=== PATIENT | female | born 1955 | race Caucasian/White ===

== ENCOUNTER 2018-08-21 13:36 | Inpatient (IN) ==
--- NOTE | 2018-08-21 10:39 | Anesthesia Evaluation PreOp ---
Date of Encounter: 08/21/18 Time of Encounter: 14:34 - Past History Planned Operation: Left Total Knee Arthroplasty Cardiac History: Hyperlipidemia Pulmonary History: Denies Any Significant HX SUPERVISOR ENGINE REPAIR History: Denies Any Significant HX Other Medical History: Other (obesity BMI=50.3, anxiety/depression) Anesthesia History: Past Anesthesia, Problems (PONV) Alcohol Use: none Drug use: none Medications and Allergies Aripiprazole [Abilify] 15 mg PO DAILY 08/21/18 [History] Cholecalciferol (D-3) [Vitamin D] 5,000 unit PO DAILY 08/21/18 [History] Diclofenac Sodium [Voltaren] 100 gm TP DAILY PRN 08/21/18 [History] Duloxetine HCl [Cymbalta] 60 mg PO DAILY 08/21/18 [History] GuaiFENesin Liq [Robitussin Liq] 400 mg PO Q4H PRN 08/21/18 [History] Meloxicam [Mobic] 15 mg PO DAILY 08/21/18 [History] hydroCHLOROthiazide [Hydrochlorothiazide] 25 mg PO DAILY 08/21/18 [History] Allergy/AdvReac Type Severity Reaction Status Date / Time No Known Allergies Allergy Verified 08/21/18 14:13 - Meds/Allergy Pre-op Review Medications Reviewed: Yes Allergies Reviewed: Yes Beta Blockers on Current Med List: No Anesthesia Results - Labs Laboratory Tests 08/07/18 08/10/18 08/10/18 11:23 16:20 16:20 WBC 6.6 Hgb 13.9 Hct 42.9 Plt Count 241 PT 11.5 INR 1.0 APTT 31.5 Sodium 137 Potassium 4.0 BUN 20 Creatinine 0.64 Anesthesia Exam O2 Sat Height 1.55 m Height 1.55 m Height 1.55 m Weight 120.656 kg Weight 120.656 kg Weight 120.656 kg O2 Sat by Pulse Oximetry 97 O2 Sat by Pulse Oximetry 97 Vital Signs Temp Pulse Resp BP Pulse Ox 98.6 F 95 18 132/94 97 08/21/18 13:46 08/21/18 13:46 08/21/18 13:46 08/21/18 13:46 08/21/18 13:46 Height: 5'1'' Weight: 266 lbs NPO (# of Hours): 8 Pain Scale: 0 Pain Scale Used: Numeric (1 - 10) - HEENT Pupil (Motor): EOMI Mallampati: II Teeth: Normal Oral Opening: Greater than 3 - SUPERVISOR ENGINE REPAIR LOC: Oriented SUPERVISOR ENGINE REPAIR Motor: Normal RUE, Normal LUE, Normal RLE, Normal LLE, Normal Face SUPERVISOR ENGINE REPAIR Sensory: Normal: RUE, LUE, RLE, LLE, Face - Cardiac Rhythm: Regular Murmur: None - Pulmonary Breath Sounds: bilateral Clear Respiratory Effort: Symmetrical Anesthesia Assess/Plan ASA Score: 3 Level of consciousness: Cooperative, Oriented, Tranquil Anesthetic Plan: Regional Nerve Block, Spinal Regional Nerve Block Plan: Adductor canal, IPACK Monitoring Plan: Standard Monitors Recovery Plan: PACU
[2018-08-21] MEDS ORDERED: CeFAZolin Syr 3,000MG/30 ML 3,000 MG/30 ML SYRINGE IVPB ONE (13:51)
[2018-08-21] MEDS ORDERED: Ringers Solution, Lactated 1,000 ML IVC SCH (14:00)
--- NOTE | 2018-08-21 14:36 | History & Physical Report ---
Date of Encounter: 08/21/18 Time of Encounter: 14:35 24 Hour HP Update - Instructions Instructions: If the History and Physical is less than 30 days old and was completed prior to A.M. admission and or procedure and has NOT been updated on calendar day of procedure please complete this update prior to performing procedure. - Update Patient reports changes in Medical Condition: No Changes in examination, assessment, or condition: No Changes in Medication: No Preop tests/diagnostics Reviewed: Yes Surgery Remains Indicated: Yes Consent for Planned Operative Procedure(s) Verified: Yes - Pre-Operative Checklist Preoperative Checklist Indicated: No Prophylactic Antibiotic Ordered: Yes Is VTE Prophylaxis Indicated?: Yes
[2018-08-21] MEDS ORDERED: Propofol 500 MG/50 ML INFUS..BTL ONE (14:37)
[2018-08-21] MEDS ORDERED: *HR* FentaNYL (PF) 100 MCG/2 ML VIAL ONE (14:38)
[2018-08-21] MEDS ORDERED: ROPIVACAINE HCL/PF 0.5% 30 ML VIAL ONE (14:57)
[2018-08-21] MEDS ORDERED: Bupivacaine/Clonidine Syringe 1 EACH SYRINGE ONE (14:57)
[2018-08-21] MEDS ORDERED: Ethanol\\Acetic Acid\\Na Ace\\Ben 1,000 ML IRRIG.SOLN IR ONE (15:32)
--- NOTE | 2018-08-21 15:46 | Anesthesia Procedures ---
Date of Encounter: 08/21/18 Time of Encounter: 15:44 Procedures: Anesthesia - Epidural/Spinal Patient ID/Chart reviewed: Yes Patient examined: Yes Consent Obtained: Yes Supplemental Oxygen: Nasal Cannula Supplemental Oxygen Rate (L/min): 3 Sedation: Fentanyl (mcg): 100 Site Prep: Aseptic Technique, Sterile prep and drape, 0.5% Chlorhexidine/Alcohol Patient position: upright Local Anesthetic: Lidocaine 1% Amount of Local Anesthetic used: 3 Interspace Used: L4-L5 Loss of Resistance (ALEXANDRU): No Blood: No CSF: Yes Paresthesia: No Spinal Needle Gauge: 25 (3.5" pencan needle) Spinal Dose: 250mcg PF morphine + 3mL of 0.5% isobaric bupi Procedure: successful on 1st attempt; patient tolerated procedure well, VSS, procedure performed by JESUS Alejnadre under direct supervision Vitals + FHT's: please see holding vital signs note
[2018-08-21] MEDS ORDERED: Ondansetron 4 MG/2 ML VIAL ONE (15:48)
--- NOTE | 2018-08-21 15:48 | Anesthesia Procedures ---
Date of Encounter: 08/21/18 Time of Encounter: 15:46 Procedures: Anesthesia - Nerve Block Procedure Date: 08/21/18 Time: 15:46 Allergies/Adv Reactions: NKDA Pre-op Diagnosis: L knee arthritis Surgical Procedure: robotic assisted L TKA Checklist: Correct Patient Identifier, Correct procedure, History checked Correct side: Left Blood Thinner: No Monitor Applied: EKG, BP, Pulse Oximetry Supplemental Oxygen via Nasal Cannula (L/min): 3 Sedation: Fentanyl (mcg): 100 Indication: Post Op Analgesia (requested by Dr. Heck) Pre-op Neuro Deficits: No Block Type: Femoral, Other (iPAC) Catheter placed: No Sterile Technique: Yes Ultrasound used: Yes Anatomy identified: Yes Visual spread of Local: Yes Neuro Stimulation: Yes Nerve Stimulator Range: 0.2 - 0.4 mA Blood on Needle Aspiration: No Smooth Injection of Local: Yes Pain with Injection of Local: No Prep: Chlorhexadine Needle: 22 x 50 mm Stimuplex (femoral n. block), 21 x 100 mm Stimuplex (iPAC) Local: 0.25% Bupivicaine w/Clonidine 20 mcg/cc (20mL for iPAC), Ropivacaine (30mL of 0.5% + 8mg dexamethasone + 5mcg/mL of epi) Number of Attempts: 1 (performed by JESUS Alejandre under direct supervision) Complications: None/effective block Vitals: please see holding vital signs note
[2018-08-21] MEDS ORDERED: *HR* OxyCODONE Immed Rel 5 MG TABLET PO PRN (16:07)
[2018-08-21] MEDS ORDERED: Ondansetron 4 MG/2 ML VIAL IVP ONE (16:07)
[2018-08-21] MEDS ORDERED: *HR* HYDROmorphone (PF) 1 MG/ML SYRINGE IVP PRN (16:07)
[2018-08-21] MEDS ORDERED: *HR* Promethazine 25 MG/ML VIAL IVP PRN (16:07)
[2018-08-21] MEDS ORDERED: *HR* Labetalol 20 MG/4 ML SYRINGE IVP PRN (16:07)
[2018-08-21] MEDS ORDERED: *HR* Meperidine 25 MG/ML SYRINGE IVP PRN (16:07)
--- NOTE | 2018-08-21 16:38 | Orthopedic Operative Note ---
Date of procedure: 08/21/18 Pre-op diagnosis: Left knee arthritis Post-op diagnosis: same Procedure: Procedure: Left robotic-assisted Total knee replacement Estimated blood loss: 200 cc Hardware: Metal and polyethylene replacement. Amol Femur: 3 Tibia: 3 TS insert: 11 Patella: 36 Exam Under anesthesia: 13 degree flexion contracture 8 degree varus as calculated by the robot full flexion and no instability Procedural Notes: Grade 4 arthritic changes all 3 compartments. Operative procedure: The patient was brought to the operating room and placed on the operating room table. After general anesthesia was administered the operative knee was examined. Findings were noted in the exam under anesthesia. The operative extremity was prepped and draped in sterile surgical fashion. The patient received IV antibiotics prior to skin incision. A standard midline incision was made centered over the patella. The incision was made through the skin and subcutaneous tissue. A medial parapatellar tendon approach was performed. Care was taken to preserve tissue along the medial aspect of the patella. And to protect the patella tendon. The deep MCL was released off the medial tibia. The infra patella fat pad was excised. The patella was everted and cut was made at the level of the insertion of the quadriceps and patella tendon. The patella was sized the guide was seated and the lug holes are drilled. Knee was brought into flexion. Patient noted to have grade 4 arthritic changes all 3 compartments. Steinmann pins were placed in the tibia and the femur for the tibial and femoral arrays respectively. Checkpoints were also placed in the tibia and the femur for calculation purposes. The knee including the femur and the tibial registered. Osteophytes, ACL and PCL were excised at this point. Extension and flexion were assessed with a valgus stress components were adjusted on the computer to balance the knee. Femoral cuts were made first with robotic assistance, these included the anterior cut posterior cuts chamfer cuts. Tibial cut was then performed with robotic assistance as well. Bone fragments were removed, as well as the medial and lateral meniscus. The size 3 femoral guide was seated box cut was made lug holes are drilled. The size 3 tibial tray was seated and prepared with the fin cutter. Trial reduction with the 11 TS Jessica revealed extension of 0 degree and 5 degree varus full flexion. No varus valgus instability. Trial reduction revealed excellent patella tracking. All trial components were removed all bony surfaces were irrigated. The Tibia was seated followed by the femur, The selected Jessica size was seated and secured patella. Patient had similar findings for motion and stability. The knee was closed by the PA. The knee was then irrigated out with 2 L of pulse irrigation. The extensor mechanism was closed with #2 FiberWire suture and #2 PDS suture. The subcutaneous tissue was then irrigated and closed deep with #1 PDS suture superficially with 0 PDS suture and skin was closed with zip tie The patient was then placed in a sterile dressing and a postoperative brace extubated and transferred to recovery room in stable condition. Anesthesia: spinal Surgeon: Antonio Heck Was there an assistant director of admissions present: No Estimated blood loss (cc): 200 Condition: stable Disposition: PACU
[2018-08-21] MEDS ORDERED: *HR* Propofol 200 MG/20 ML VIAL IVP ONE (16:49)
[2018-08-21] MEDS ORDERED: *HR* PHENYLEPHRINE 1,000 MCG/10 ML SYRINGE IVP ONE (16:49)
[2018-08-21] MEDS ORDERED: EPHEDrine 50 MG/ML VIAL ONE (16:49)
--- NOTE | 2018-08-21 17:48 | Anesthesia Evaluation Post Op ---
Date of Encounter: 08/21/18 Time of Encounter: 17:48 - Vital Signs Vital Signs: Vital Signs/O2 Sat, Most Current Temp Pulse Resp BP Pulse Ox 97.5 F L 81 18 117/71 93 08/21/18 17:39 08/21/18 17:39 08/21/18 17:39 08/21/18 17:39 08/21/18 17:39 - Lungs Lungs: Clear Ascult./Percussion - Airway Airway: Non-obstructed - Cardiovascular Regular Rate - Mental Status Mental Status: Alert & Oriented, Answers Appropriately - Pain Pain Scale: 0 Pain Scale used: Numeric (1 - 10) - Nausea Vomiting Nausea Vomiting: Not Present - Hydration Hydration: Ice chips, Has not voided - Discharge PostOp Status: Transfer Patient to floor
[2018-08-21 17:50] LABS: Hematocrit 37.1 % (35.3-44.9); Hemoglobin 12.3 g/dL (11.5-15.4)
[2018-08-21] MEDS ORDERED: *HR* OxyCODONE/APAP 5/325 TABLET PO PRN (18:10)
[2018-08-21] MEDS ORDERED: Naloxone 0.4 MG/ML INJ IVP PRN (18:10)
[2018-08-21] MEDS ORDERED: Temazepam 15 MG CAPSULE PO PRN (18:10)
[2018-08-21] MEDS ORDERED: MOM Conc 10 ML UD.LIQ PO PRN (18:10)
[2018-08-21] MEDS ORDERED: Sennosides 8.6 MG TABLET PO PRN (18:10)
[2018-08-21] MEDS ORDERED: GuaiFENesin Liq 200 MG/10 ML UDC PO PRN (18:10)
[2018-08-22] MEDS: ceFAZolin sodium 3,000 MG in 0.9 % Sodium Chloride 100 ML IVPB SCH ×2 (00:19→09:08)
[2018-08-22] MEDS: Ondansetron 4 MG/2 ML VIAL IVP PRN ×2 (00:20→10:12)
[2018-08-22] MEDS: Ringers Solution, Lactated 1,000 ML IVC SCH ×2 (04:27→19:38)
[2018-08-22 05:28] LABS: Hematocrit 37.1 % (35.3-44.9); Hemoglobin 12.1 g/dL (11.5-15.4)
[2018-08-22] MEDS: *HR* Enoxaparin 30 MG/0.3 ML SYRINGE SQ SCH ×3 (05:28→17:05)
[2018-08-22 05:46] LABS: BUN/Creatinine Ratio 39 (6-26); Blood Urea Nitrogen 19 mg/dL (8-23); Calcium 9.1 mg/dL (8.6-10.3); Carbon Dioxide 24 mEq/L (23-29); Chloride 104 mEq/L (98-107); Glucose 151 mg/dL (70-105); Osmolality,Calculated 287 (280-300); Potassium 4.4 mEq/L (3.5-5.1); Sodium 136 mEq/L (136-145); eGFR For Non-African Americans > 60 (> 60)
--- NOTE | 2018-08-22 06:34 | Orthopedics Progress Note ---
Date of Encounter: 08/22/18 Time of Encounter: 06:34 Subjective Interval history: Patient was seen this morning doing well without complaints. Afebrile vital signs stable. Operative extremity: Neurovascularly intact Dressing clean dry and intact Calves nontender Assessment and plan: Continue with postoperative care Patient is unsafe to go home will require ECF converted to inpatient status Objective Vital signs: Vital Signs Temp Pulse Resp BP Pulse Ox 08/22/18 04:03 97.6 F 69 17 94/68 93 08/21/18 23:26 98.1 F 71 17 93/66 94 08/21/18 21:48 68 14 102/70 97 08/21/18 18:47 97.3 F L 73 12 102/69 92 08/21/18 18:18 97.6 F 77 12 90/65 94 08/21/18 17:54 97.5 F L 76 16 110/63 94 08/21/18 17:39 97.5 F L 81 18 117/71 93 08/21/18 17:29 82 18 111/77 93 08/21/18 17:19 83 18 103/59 93 08/21/18 17:09 98.3 F 87 20 93/49 93 08/21/18 15:23 86 16 117/73 97 08/21/18 15:08 91 18 128/76 100 08/21/18 13:58 98.6 F 95 18 132/94 97 08/21/18 13:46 98.6 F 95 18 132/94 97 Intake and Output 08/21/18 08/21/18 08/22/18 15:59 23:59 07:59 Intake Total 100 / 100 Output Total 350 / 350 210 / 210 Balance -350 / -350 -110 / -110 Intake: Oral 100 / 100 Output: Urine 200 / 200 Emesis 150 / 150 10 / 10 Estimated Blood Loss 200 / 200 Other: Weight 120.656 kg 120.658 kg Patient Weight 08/22/18 23:59 Weight 120.658 kg - Labs CBC & BMP: 08/22/18 04:57 08/22/18 04:57 Labs: Abnormal lab results Creatinine 0.49 mg/dL (0.60-1.20) L 08/22/18 04:57 BUN/Creatinine Ratio 39 (6-26) H 08/22/18 04:57 Glucose 151 mg/dL (70-105) H 08/22/18 04:57 Consult Discharge Plan - Plan Referrals: Beatrice Solis MD [Primary Care Provider] -
[2018-08-22] MEDS: ARIPiprazole 10 MG TABLET PO SCH (09:07)
[2018-08-22] MEDS: Cholecalciferol (D-3) 1,000 UNIT TABLET PO SCH (09:07)
[2018-08-22] MEDS: hydroCHLOROthiazide 25 MG TABLET PO SCH (09:07)
--- NOTE | 2018-08-22 12:20 | Event Note ---
Date of Encounter: 08/22/18 Time of Encounter: 12:19 PCR - POD#1 - Left TKR Patient seen at bedside, without complaints. A&O x 3 Afebrile, vital signs stable. Labs reviewed. H/H - stable, asymptomatic Pain control: adequate Participating in PT. All questions and concerns addressed. Educated on use of incentive spirometer. Encouraged ambulation and proper hydration. Patient educated on post-operative restrictions and post-operative care. Assessment and plan: Continue with postoperative care Discharge plan: ECF, discharge Tuesday. Vital Signs Temp Pulse Resp BP Pulse Ox 08/22/18 12:14 97.5 F L 71 15 99/68 98 08/22/18 09:10 97 08/22/18 07:23 98.3 F 65 15 100/70 97 08/22/18 04:03 97.6 F 69 17 94/68 93 08/21/18 23:26 98.1 F 71 17 93/66 94 08/21/18 21:48 68 14 102/70 97 08/21/18 18:47 97.3 F L 73 12 102/69 92 08/21/18 18:18 97.6 F 77 12 90/65 94 08/21/18 17:54 97.5 F L 76 16 110/63 94 08/21/18 17:39 97.5 F L 81 18 117/71 93 08/21/18 17:29 82 18 111/77 93 08/21/18 17:19 83 18 103/59 93 08/21/18 17:09 98.3 F 87 20 93/49 93 08/21/18 15:23 86 16 117/73 97 08/21/18 15:08 91 18 128/76 100 08/21/18 13:58 98.6 F 95 18 132/94 97 08/21/18 13:46 98.6 F 95 18 132/94 97 Intake and Output 08/21/18 08/22/18 08/22/18 23:59 07:59 15:59 Intake Total 200 / 200 100 / 100 Output Total 350 / 350 210 / 210 700 / 700 Balance -350 / -350 -10 / -10 -600 / -600 Intake: IV Fluids 100 / 100 Ancef 3,000 MG In 0.9 % Sodium 100 / 100 Chloride 100 ML @ 200 mls/hr IVPB Q8HR JOSE ANTONIO Rx#:[id number] Oral 100 / 100 100 / 100 Output: Urine 200 / 200 700 / 700 Emesis 150 / 150 10 / 10 Estimated Blood Loss 200 / 200 Other: Weight 120.658 kg Patient Weight 08/22/18 23:59 Weight 120.658 kg Short CBC 08/22/18 08/21/18 Range/Units 04:57 17:30 Hgb 12.1 12.3 (11.5-15.4) g/dL Hct 37.1 37.1 (35.3-44.9) % BMP 08/22/18 Range/Units 04:57 Sodium 136 (136-145) mEq/L Potassium 4.4 (3.5-5.1) mEq/L Chloride 104 (98-107) mEq/L Carbon Dioxide 24 (23-29) mEq/L BUN 19 (8-23) mg/dL Creatinine 0.49 L (0.60-1.20) mg/dL Glucose 151 H (70-105) mg/dL Calcium 9.1 (8.6-10.3) mg/dL
--- NOTE | 2018-08-22 17:14 | Discharge Summary ---
Orders not resulted at time of discharge: Pending orders 08/21/18 14:49 US anesthesia pain block [US] Routine 08/21/18 16:43 Surgical Pathology [PTH] Routine 08/23/18 04:00 Basic Metabolic Panel AM 0400 Hemoglobin and Hematocrit [HEME] AM 0400 Date of Encounter: 08/25/18 Time of Encounter: 13:30 - Discharge Diagnosis (1) Status post total left knee replacement Priority: Primary Status: Acute Comments: .Opsite dressing, leave intact until first post-operative visit. If dressing becomes >50% saturated, contact office, remove dressing and place appropriate dressing in its place. Do not allow for dressing to get wet. Zipline in place, plan to remove at post-operative day #14-16. Total Joint Precautions x 6 weeks Apply cold therapy wrap 3-6x/day for 20 minutes at a time. Encourage ambulation throughout the day Use Incentive spirometer 10x/hour. Elevate affected extremity above heart as tolerated. Brace: Wear knee immobilizer at night until first post-operative appt. (2) Arthritis of left knee Priority: Primary Status: Acute (3) CAD (coronary artery disease) Priority: Secondary Status: Acute Qualifiers: Coronary Disease-Associated Artery/Lesion type: [place] artery [place] vs. transplanted heart: [place] heart Associated angina: without angina Qualified Code(s): I25.10 - Atherosclerotic heart disease of [place] coronary artery without angina pectoris (4) History of anemia Priority: Secondary Status: Chronic - Hospital Course Hospital course: Ms. Styles is a 62 year old female POD#4 - Left TKR Patient seen at bedside, without complaints. A&O x 3 Afebrile, vital signs stable. Vital Signs Temp Pulse Resp BP Pulse Ox 08/25/18 11:34 98.8 F 87 16 109/67 98 08/25/18 06:41 97.6 F 93 16 118/76 95 08/24/18 22:51 97.9 F 89 16 116/80 94 08/24/18 19:34 99.1 F 84 15 115/75 90 08/24/18 17:31 98.5 F 87 17 143/88 94 Intake and Output 08/24/18 08/25/18 08/25/18 23:59 07:59 15:59 Intake Total 300 / 300 Balance 300 / 300 Intake: Oral 300 / 300 Other: Meal Dinner Percent of Meal Consumed 75% # Voids 1 1 Weight 122.6 kg Patient Weight 08/25/18 23:59 Weight 122.6 kg Labs reviewed. H/H - stable, asymptomatic Short CBC 08/25/18 Range/Units 08:21 Hgb 10.2 L (11.5-15.4) g/dL Hct 30.6 L (35.3-44.9) % Pain control: adequate Participating in PT. All questions and concerns addressed. Educated on use of incentive spirometer. Encouraged ambulation and proper hydration. Patient educated on post-operative restrictions and post-operative care. Assessment and plan: Continue with postoperative care Discharge plan: ECF, discharge Tuesday. - Time Spent with Patient Total time spent providing and/or coordinating discharge services: - Discharge Medications Prescriptions: OxyCODONE Immed Rel [Roxicodone 5 MG] 5 mg PO Q6HR PRN 7 Days #28 tablet PRN Reason: Severe pain 7-10 Aspirin Enteric Coated [Aspirin EC] 325 mg PO BID #20 tablet. Docleahte [Colace] 100 mg PO BID #14 tab Home Medications: Aripiprazole [Abilify] 15 mg PO DAILY 08/21/18 [History] Cholecalciferol (D-3) [Vitamin D] 5,000 unit PO DAILY 08/21/18 [History] Diclofenac Sodium [Voltaren] 100 gm TP DAILY PRN 08/21/18 [History] Duloxetine HCl [Cymbalta] 60 mg PO DAILY 08/21/18 [History] GuaiFENesin Liq [Robitussin Liq] 400 mg PO Q4H PRN 08/21/18 [History] hydroCHLOROthiazide [Hydrochlorothiazide] 25 mg PO DAILY 08/21/18 [History] Aspirin Enteric Coated [Aspirin EC] 325 mg PO BID #20 tablet. 08/22/18 [Rx] Docusate [Colace] 100 mg PO BID #14 tab 08/22/18 [Rx] OxyCODONE Immed Rel [Roxicodone 5 MG] 5 mg PO Q6HR PRN 7 Days #28 tablet 08/22/18 [Rx] Allergies/Adverse Reactions: Allergy/AdvReac Type Severity Reaction Status Date / Time No Known Allergies Allergy Verified 08/21/18 14:13 Date of admission: 08/22/18 06:33 Primary care physician: Beatrice Solis Consults: 08/21/18 18:10 Consult to Occupational Therapy [CONS] Routine Comment: Evaluate, develop and implement POC Reason for Consult: post knee surgery Does patient have active BEDREST order?: No Is patient medically & hemodynamically stable?: Yes Consult to Orthopedic Navigator [CONS] [CONS] Routine Consult to Physical Therapy [CONS] Routine Comment: Evaluate, develop and impliment POC Reason for Consult: post knee surgery Does patient have active BEDREST order?: No Is patient medically & hemodynamically stable?: Yes Consult to Family Law Attorney [CONS] Routine Reason for SW Consult: post op joint replacement RT Post Op Consult [CONS] Routine 08/21/18 18:16 Consult to Pastoral Services [CONS] Routine Comment: pt request Anticipated date of discharge: 08/25/18 Labs on day of discharge: Labs from last 24 hours 08/22/18 08/22/18 08/21/18 04:57 04:57 17:30 Hgb 12.1 12.3 Hct 37.1 37.1 Sodium 136 Potassium 4.4 Chloride 104 Carbon Dioxide 24 BUN 19 Creatinine 0.49 L Est GFR ( Amer) > 60 Est GFR (Non-Af Amer) > 60 BUN/Creatinine Ratio 39 H Glucose 151 H Calculated Osmolality 287 Calcium 9.1 - Impressions ITS Impressions Knee X-Ray 08/21/18 00:01 IMPRESSION: Status post left knee arthroplasty without evidence of acute postoperative complication. D/ / 08/22/2018 08:10:15 Jack Ortega MD / Lupe Shay Interpreting Provider: Jack Ortega MD - Patient Status Disposition: Transfer SNF Functional capacity at discharge: uses cane/walker Overall status at discharge: patient is progressing back to baseline - Discharge Instructions Follow Up With: Beatrice Solis MD [Primary Care Provider] - Additional Instructions: Discharge Instructions: Total Knee Replacement Please call [facility] ([phone]), your Primary Care Physician, or report to the Emergency Room if you have any of the following symptoms: Nausea, vomiting, fever greater that 101.5, swelling, chest pain, shortness of breath, increased pain/redness/drainage/odor for your incision site, numbness/tingling, or any other concerning symptoms. ACTIVITY:Weight-bearing as tolerated. You may progress off support (crutches or walker) as tolerated. Incentive Spirometer 10 times an hour. MEDICATIONS: Upon discharge resume your home medications. Take all the medications as prescribed. Take a stool softener if taking narcotic pain medications. Stool softeners are only effective if you drink enough fluids. Drink 6-8 glass of water or fluids a day, unless this is not allowed for another health problem. Despite using stool softeners, if you haven't had a bowel movement in 3 days, please switch to a gentle laxative. Gentle laxatives are sold over the counter. You should have a bowel movement within 24 hours, if not call the office. You will be discharged from the hospital with a prescription for pain medication. You are encouraged to decrease the use of narcotic pain medication as tolerated. Should you require a refill, please call the office. [facility] prescribes narcotic pain medication for only 4-6 weeks after surgery. If you require pain medication beyond this time period, you may be referred to your Primary Care Physician or to the Pain Clinic for further evaluation. Plan ahead for refills on pain medication as many narcotics either need to be picked up at the office or mailed. It is best to call 48-72 hours in advance of needing a prescription refill so you don't run out of medication. To help control the post-operative pain, you may take NSAIDs (Aleve,Advil, Motrin, Ibuprofen, Naprosyn) or Tylenol as prescribed on the bottle in addition to the pain medication. ANTICOAGULATION (blood thinners): Continue your Aspirin, Lovenox or Coumadin as prescribed to help prevent a blood clot in the leg or in the lungs. As long as your incision remains dry and you tolerate the NSAIDs (Aleve, Advil, Motrin, ibuprofen, naprosyn), it is OK to use the NSAIDS while you are taking your anticoagulation medication. Should your incision start to drain, stop the NSAID and contact our office. Common symptoms of blood clot in the legs include: localized pain, swelling, calf tenderness, redness or discoloration of the skin. Blood clot in the lung symptoms include: shortness of breath, rapid pulse, sweating, and chest pain that worsens with deep breathing, coughing up blood, lightheadedness, feelings of anxiety. If you experience any of these symptoms notify your physician immediately, go to the emergency room, or if having trouble breathing, call 911. WOUND CARE: Leave the dressing on for 7 to 10days. You may change the dressing if it becomes saturated greater than 50%. Do not get the dressing wet at anytime. Wash your hands with antibacterial soap, rinse and dry prior to any wound care. If you have erin the visiting nurse or rehab facility can remove the stapes 10-14 days after surgery and place steri-strips across the wound. Leave the steri-strips in place until they fall off on their won. You may let water from the shower run on top of the steri-strips. If you do not have a visiting nurse or rehab facility, you will need to return to the office at 10-14 days for the erin to be removed. If you have itching or redness around the dressing call the office. FOLLOW-UP: Please follow up with your surgeon in the orthopedic clinic in 4 weeks from the day of surgery. If you have erin that need to be removed, you will need to come back to the office in 10-14 days from the day of surgery.
--- NOTE | 2018-08-22 17:16 | Physician Discharge Referral ---
ExtendedCare Referral Info Transfer To: F Provider in Charge after Transfer: PCP Institutional Level of Care: Skilled - Diagnosis (1) Status post total left knee replacement Priority: Primary Status: Acute (2) Arthritis of left knee Priority: Primary Status: Acute (3) CAD (coronary artery disease) Priority: Secondary Status: Acute (4) History of anemia Priority: Secondary Status: Chronic Expected Duration of Placement: < 30 days Prognosis: Good Aware of Diagnosis: Patient Aware of Prognosis: Patient - Transfer Medications Prescriptions: OxyCODONE Immed Rel [Roxicodone 5 MG] 5 mg PO Q6HR PRN 7 Days #28 tablet PRN Reason: Severe pain 7-10 Aspirin Enteric Coated [Aspirin EC] 325 mg PO BID #20 tablet. Doccirilo [Colace] 100 mg PO BID #14 tab Home Medications: Aripiprazole [Abilify] 15 mg PO DAILY 08/21/18 [History] Cholecalciferol (D-3) [Vitamin D] 5,000 unit PO DAILY 08/21/18 [History] Diclofenac Sodium [Voltaren] 100 gm TP DAILY PRN 08/21/18 [History] Duloxetine HCl [Cymbalta] 60 mg PO DAILY 08/21/18 [History] GuaiFENesin Liq [Robitussin Liq] 400 mg PO Q4H PRN 08/21/18 [History] hydroCHLOROthiazide [Hydrochlorothiazide] 25 mg PO DAILY 08/21/18 [History] Aspirin Enteric Coated [Aspirin EC] 325 mg PO BID #20 tablet. 08/22/18 [Rx] Docusate [Colace] 100 mg PO BID #14 tab 08/22/18 [Rx] OxyCODONE Immed Rel [Roxicodone 5 MG] 5 mg PO Q6HR PRN 7 Days #28 tablet 08/22/18 [Rx] Allergies/Adverse Reactions: Allergy/AdvReac Type Severity Reaction Status Date / Time No Known Allergies Allergy Verified 08/21/18 14:13 - Respiratory Orders None Smoking Cessation: Smoking cessation has been advised. For more information, call the [place] Tobacco Quit Line at 7-771-HRCE-NOW. - Mobility Orders Ambulate - Rehabiliation Orders Rehab Potential: Good Rehab Orders: ROM Exercises, Evaluation for Physical Therapy, Evaluation for Occupational Therapy - Treatments Skin tear care topically daily PRN per policy, May check for fecal impaction rectally daily PRN, Fleet enema rectally every other day PRN cleansing purposes List/Other: Opsite dressing, leave intact until first post-operative visit. If dressing becomes >50% saturated, contact office, remove dressing and place appropriate dressing in its place. Do not allow for dressing to get wet. Zipline in place, plan to remove at post-operative day #14-16. Total Joint Precautions x 6 weeks Apply cold therapy wrap 3-6x/day for 20 minutes at a time. Encourage ambulation throughout the day Use Incentive spirometer 10x/hour. Elevate affected extremity above heart as tolerated. Brace: Wear knee immobilizer at night until first post-operative appt. - Diet Orders Regular CERTIFICATION: I certify that the transfer of the above named [facility] for the continuing treatment of the diagnosis listed. The above information is true and accurate reflection of patient's current condition. Confidential - Redisclosure prohibited without a patient's written consent.
[2018-08-22] MEDS: *HR* OxyCODONE Immed Rel 5 MG TABLET PO PRN (18:11)
[2018-08-22] MEDS: traMADol 50 MG TABLET PO PRN (20:39)
[2018-08-23] MEDS: *HR* OxyCODONE Immed Rel 5 MG TABLET PO PRN ×5 (01:01→20:33)
[2018-08-23 04:24] LABS: Hematocrit 32.5 % (35.3-44.9); Hemoglobin 10.6 g/dL (11.5-15.4)
[2018-08-23 04:43] LABS: BUN/Creatinine Ratio 53 (6-26); Blood Urea Nitrogen 20 mg/dL (8-23); Calcium 8.5 mg/dL (8.6-10.3); Carbon Dioxide 26 mEq/L (23-29); Chloride 103 mEq/L (98-107); Glucose 131 mg/dL (70-105); Osmolality,Calculated 284 (280-300); Sodium 135 mEq/L (136-145); eGFR For Non-African Americans > 60 (> 60)
[2018-08-23] MEDS: *HR* Enoxaparin 30 MG/0.3 ML SYRINGE SQ SCH ×2 (05:52→16:18)
[2018-08-23] MEDS: traMADol 50 MG TABLET PO PRN (08:32)
[2018-08-23] MEDS: ARIPiprazole 10 MG TABLET PO SCH (08:32)
[2018-08-23] MEDS: Cholecalciferol (D-3) 1,000 UNIT TABLET PO SCH (08:33)
[2018-08-23] MEDS: hydroCHLOROthiazide 25 MG TABLET PO SCH (08:33)
--- NOTE | 2018-08-23 14:35 | Orthopedics Progress Note ---
Date of Encounter: 08/23/18 Time of Encounter: 06:00 Subjective Interval history: Patient was seen this morning doing well without complaints. Afebrile vital signs stable. Operative extremity: Neurovascularly intact Dressing clean dry and intact Calves nontender Assessment and plan: Continue with postoperative care Discharge when approved Objective Vital signs: Vital Signs Temp Pulse Resp BP Pulse Ox 08/23/18 10:48 98.4 F 87 18 136/85 93 08/23/18 06:22 98.7 F 83 18 116/80 95 08/22/18 23:36 98.5 F 84 16 120/76 97 08/22/18 19:00 98.3 F 82 15 98/62 96 08/22/18 15:37 98.3 F 73 15 109/77 97 Intake and Output 08/22/18 08/23/18 08/23/18 23:59 07:59 15:59 Intake Total 1000 / 1000 270 / 270 Output Total 150 / 150 Balance 1000 / 1000 -150 / -150 270 / 270 Intake: IV Fluids 1000 / 1000 100 / 100 Lactated Ringers 1,000 ML @ 75 1000 / 1000 mls/hr IVC .[id number] JOSE ANTONIO Rx#: [id number] Oral 170 / 170 Output: Urine 150 / 150 Other: Meal Lunch Percent of Meal Consumed 30% # Voids 1 Weight 122 kg Patient Weight 08/23/18 23:59 Weight 122 kg - Labs CBC & BMP: 08/23/18 03:39 08/23/18 03:39 Labs: Abnormal lab results Hgb 10.6 g/dL (11.5-15.4) L D 08/23/18 03:39 Hct 32.5 % (35.3-44.9) L 08/23/18 03:39 Sodium 135 mEq/L (136-145) L 08/23/18 03:39 Creatinine 0.38 mg/dL (0.60-1.20) L 08/23/18 03:39 BUN/Creatinine Ratio 53 (6-26) H 08/23/18 03:39 Glucose 131 mg/dL (70-105) H 08/23/18 03:39 Calcium 8.5 mg/dL (8.6-10.3) L 08/23/18 03:39 Consult Discharge Plan - Plan Referrals: Beatrice Solis MD [Primary Care Provider] - Prescriptions: Aspirin Enteric Coated [Aspirin EC] 325 mg PO BID #20 tablet. Doccirilo [Colace] 100 mg PO BID #14 tab OxyCODONE Immed Rel [Roxicodone 5 MG] 5 mg PO Q6HR PRN 7 Days #28 tablet PRN Reason: Severe pain 7-10
--- NOTE | 2018-08-23 15:52 | Event Note ---
Date of Encounter: 08/23/18 Time of Encounter: 15:52 PCR - POD#2 - Left TKR Patient seen at bedside, without complaints. A&O x 3 Afebrile, vital signs stable. Labs reviewed. H/H - stable, asymptomatic Pain control: adequate Participating in PT. All questions and concerns addressed. Educated on use of incentive spirometer. Encouraged ambulation and proper hydration. Patient educated on post-operative restrictions and post-operative care. Assessment and plan: Continue with postoperative care Discharge plan: ECF, discharge Tuesday. Short CBC 08/23/18 Range/Units 03:39 Hgb 10.6 L D (11.5-15.4) g/dL Hct 32.5 L (35.3-44.9) % BMP 08/23/18 Range/Units 03:39 Sodium 135 L (136-145) mEq/L Potassium 4.0 (3.5-5.1) mEq/L Chloride 103 (98-107) mEq/L Carbon Dioxide 26 (23-29) mEq/L BUN 20 (8-23) mg/dL Creatinine 0.38 L (0.60-1.20) mg/dL Glucose 131 H (70-105) mg/dL Calcium 8.5 L (8.6-10.3) mg/dL Vital Signs Temp Pulse Resp BP Pulse Ox 08/23/18 15:07 98.4 F 93 18 124/82 93 08/23/18 10:48 98.4 F 87 18 136/85 93 08/23/18 06:22 98.7 F 83 18 116/80 95 08/22/18 23:36 98.5 F 84 16 120/76 97 08/22/18 19:00 98.3 F 82 15 98/62 96 Intake and Output 08/22/18 08/23/18 08/23/18 23:59 07:59 15:59 Intake Total 1000 / 1000 270 / 270 Output Total 150 / 150 Balance 1000 / 1000 -150 / -150 270 / 270 Intake: IV Fluids 1000 / 1000 100 / 100 Lactated Ringers 1,000 ML @ 75 1000 / 1000 mls/hr IVC .[id number] JOSE ANTONIO Rx#: [id number] Oral 170 / 170 Output: Urine 150 / 150 Other: Meal Lunch Percent of Meal Consumed 30% # Voids 1 1 Weight 122 kg Patient Weight 08/23/18 23:59 Weight 122 kg
[2018-08-24] MEDS: *HR* OxyCODONE Immed Rel 5 MG TABLET PO PRN ×5 (02:38→22:48)
[2018-08-24] MEDS: *HR* Enoxaparin 30 MG/0.3 ML SYRINGE SQ SCH ×2 (05:09→17:13)
[2018-08-24] MEDS: hydroCHLOROthiazide 25 MG TABLET PO SCH (08:31)
[2018-08-24] MEDS: ARIPiprazole 10 MG TABLET PO SCH (08:31)
[2018-08-24] MEDS: Cholecalciferol (D-3) 1,000 UNIT TABLET PO SCH (08:31)
[2018-08-24] MEDS: traMADol 50 MG TABLET PO PRN (08:54)
--- NOTE | 2018-08-24 10:49 | Orthopedics Progress Note ---
Date of Encounter: 08/24/18 Time of Encounter: 10:49 Subjective Interval history: Patient was seen this morning doing well without complaints. Afebrile vital signs stable. Operative extremity: Neurovascularly intact Dressing clean dry and intact Calves nontender Assessment and plan: Continue with postoperative care Discharge when approved Objective Vital signs: Vital Signs Temp Pulse Resp BP Pulse Ox 08/24/18 08:58 98.3 F 98 18 128/79 94 08/24/18 06:59 98.1 F 85 18 106/68 93 08/24/18 04:10 98.0 F 83 14 122/76 90 08/24/18 00:47 98.2 F 92 14 116/67 91 08/23/18 18:25 98.2 F 92 15 143/89 90 08/23/18 15:07 98.4 F 93 18 124/82 93 Intake and Output 08/23/18 08/24/18 08/24/18 23:59 07:59 15:59 Intake Total 150 / 150 240 / 240 Balance 150 / 150 240 / 240 Intake: Oral 150 / 150 240 / 240 Other: Meal Dinner Breakfast Percent of Meal Consumed 25% 40% # Voids 1 1 Weight 122.5 kg Patient Weight 08/24/18 23:59 Weight 122.5 kg - Labs CBC & BMP: 08/23/18 03:39 08/23/18 03:39 Labs: Abnormal lab results Hgb 10.6 g/dL (11.5-15.4) L D 08/23/18 03:39 Hct 32.5 % (35.3-44.9) L 08/23/18 03:39 Sodium 135 mEq/L (136-145) L 08/23/18 03:39 Creatinine 0.38 mg/dL (0.60-1.20) L 08/23/18 03:39 BUN/Creatinine Ratio 53 (6-26) H 08/23/18 03:39 Glucose 131 mg/dL (70-105) H 08/23/18 03:39 Calcium 8.5 mg/dL (8.6-10.3) L 08/23/18 03:39 Consult Discharge Plan - Plan Referrals: Beatrice Solis MD [Primary Care Provider] - Prescriptions: Aspirin Enteric Coated [Aspirin EC] 325 mg PO BID #20 tablet.dr Docusate [Colace] 100 mg PO BID #14 tab OxyCODONE Immed Rel [Roxicodone 5 MG] 5 mg PO Q6HR PRN 7 Days #28 tablet PRN Reason: Severe pain 7-10
[2018-08-25] MEDS: *HR* OxyCODONE Immed Rel 5 MG TABLET PO PRN ×2 (04:41→11:15)
[2018-08-25] MEDS: *HR* Enoxaparin 30 MG/0.3 ML SYRINGE SQ SCH (04:44)
[2018-08-25] MEDS: ARIPiprazole 10 MG TABLET PO SCH (07:20)
[2018-08-25] MEDS: Cholecalciferol (D-3) 1,000 UNIT TABLET PO SCH (07:21)
[2018-08-25] MEDS: hydroCHLOROthiazide 25 MG TABLET PO SCH (07:21)
--- NOTE | 2018-08-25 08:31 | Orthopedics Progress Note ---
Date of Encounter: 08/25/18 Time of Encounter: 08:30 Subjective Interval history: Patient was seen this morning doing well without complaints. Afebrile vital signs stable. Operative extremity: Neurovascularly intact Dressing clean dry and intact Calves nontender Assessment and plan: Continue with postoperative care Discharge when approved Objective Vital signs: Vital Signs Temp Pulse Resp BP Pulse Ox 08/25/18 06:41 97.6 F 93 16 118/76 95 08/24/18 22:51 97.9 F 89 16 116/80 94 08/24/18 19:34 99.1 F 84 15 115/75 90 08/24/18 17:31 98.5 F 87 17 143/88 94 08/24/18 13:26 98.1 F 68 16 98 08/24/18 13:13 95 08/24/18 11:48 98.6 F 93 18 105/72 94 08/24/18 08:58 98.3 F 98 18 128/79 94 Intake and Output 08/24/18 08/25/18 08/25/18 23:59 07:59 15:59 Intake Total 300 / 300 Balance 300 / 300 Intake: Oral 300 / 300 Other: Meal Dinner Percent of Meal Consumed 75% # Voids 1 1 Weight 122.6 kg Patient Weight 08/25/18 23:59 Weight 122.6 kg - Labs CBC & BMP: 08/23/18 03:39 08/23/18 03:39 Labs: Abnormal lab results Hgb 10.6 g/dL (11.5-15.4) L D 08/23/18 03:39 Hct 32.5 % (35.3-44.9) L 08/23/18 03:39 Sodium 135 mEq/L (136-145) L 08/23/18 03:39 Creatinine 0.38 mg/dL (0.60-1.20) L 08/23/18 03:39 BUN/Creatinine Ratio 53 (6-26) H 08/23/18 03:39 Glucose 131 mg/dL (70-105) H 08/23/18 03:39 Calcium 8.5 mg/dL (8.6-10.3) L 08/23/18 03:39 - VTE Documentation of Mechanical Device: Venous foot pump, device Consult Discharge Plan - Plan Additional Instructions: Discharge Instructions: Total Knee Replacement Please call [facility] ([phone]), your Primary Care Physician, or report to the Emergency Room if you have any of the following symptoms: Nausea, vomiting, fever greater that 101.5, swelling, chest pain, shortness of breath, increased pain/redness/drainage/odor for your incision site, numbness/tingling, or any other concerning symptoms. ACTIVITY:Weight-bearing as tolerated. You may progress off support (crutches or walker) as tolerated. Incentive Spirometer 10 times an hour. MEDICATIONS: Upon discharge resume your home medications. Take all the medications as prescribed. Take a stool softener if taking narcotic pain medications. Stool softeners are only effective if you drink enough fluids. Drink 6-8 glass of water or fluids a day, unless this is not allowed for another health problem. Despite using stool softeners, if you haven't had a bowel movement in 3 days, please switch to a gentle laxative. Gentle laxatives are sold over the counter. You should have a bowel movement within 24 hours, if not call the office. You will be discharged from the hospital with a prescription for pain medication. You are encouraged to decrease the use of narcotic pain medication as tolerated. Should you require a refill, please call the office. [facility] prescribes narcotic pain medication for only 4-6 weeks after surgery. If you require pain medication beyond this time period, you may be referred to your Primary Care Physician or to the Pain Clinic for further evaluation. Plan ahead for refills on pain medication as many narcotics either need to be picked up at the office or mailed. It is best to call 48-72 hours in advance of needing a prescription refill so you don't run out of medication. To help control the post-operative pain, you may take NSAIDs (Aleve,Advil, Motrin, Ibuprofen, Naprosyn) or Tylenol as prescribed on the bottle in addition to the pain medication. ANTICOAGULATION (blood thinners): Continue your Aspirin, Lovenox or Coumadin as prescribed to help prevent a blood clot in the leg or in the lungs. As long as your incision remains dry and you tolerate the NSAIDs (Aleve, Advil, Motrin, ibuprofen, naprosyn), it is OK to use the NSAIDS while you are taking your anticoagulation medication. Should your incision start to drain, stop the NSAID and contact our office. Common symptoms of blood clot in the legs include: localized pain, swelling, calf tenderness, redness or discoloration of the skin. Blood clot in the lung symptoms include: shortness of breath, rapid pulse, sweating, and chest pain that worsens with deep breathing, coughing up blood, lightheadedness, feelings of anxiety. If you experience any of these symptoms notify your physician immediately, go to the emergency room, or if having trouble breathing, call 911. WOUND CARE: Leave the dressing on for 7 to 10days. You may change the dressing if it becomes saturated greater than 50%. Do not get the dressing wet at anytime. Wash your hands with antibacterial soap, rinse and dry prior to any wound care. If you have erin the visiting nurse or rehab facility can remove the stapes 10-14 days after surgery and place steri-strips across the wound. Leave the steri-strips in place until they fall off on their won. You may let water from the shower run on top of the steri-strips. If you do not have a visiting nurse or rehab facility, you will need to return to the office at 10-14 days for the erin to be removed. If you have itching or redness around the dressing call the office. FOLLOW-UP: Please follow up with your surgeon in the orthopedic clinic in 4 weeks from the day of surgery. If you have erin that need to be removed, you will need to come back to the office in 10-14 days from the day of surgery. Referrals: Beatrice Solis MD [Primary Care Provider] - Prescriptions: Aspirin Enteric Coated [Aspirin EC] 325 mg PO BID #20 tablet.dr Velozte [Colace] 100 mg PO BID #14 tab OxyCODONE Immed Rel [Roxicodone 5 MG] 5 mg PO Q6HR PRN 7 Days #28 tablet PRN Reason: Severe pain 7-10
[2018-08-25 08:35] LABS: Hematocrit 30.6 % (35.3-44.9); Hemoglobin 10.2 g/dL (11.5-15.4)
[2018-08-25 11:35] VITALS: BP 109/67
== END 2018-08-25 13:00 | DRG 470 ==
LOC: SAMDAY 13:36 → 3NENU 17:52
PROVIDERS: ADMIT Orthopaedic Surgery; ATTEND Orthopaedic Surgery